=== PATIENT | female | born 1985 | race African-American/Black ===

== ENCOUNTER 2024-02-05 20:48 | Emergency (ER) | payer SELFPAY ==
[~2024-02-05] VITALS: Ht 162.6 cm; Wt 70.0 kg
[2024-02-05 21:29] VITALS: O2SAT 100
[2024-02-05] MEDS: ACETAMINOPHEN 325MG TABLET PO ONE (23:30)
[2024-02-05] MEDS: LIDOCAINE HCL/PF 1% 10 MG/ML 5ML VIAL INFIL ONE (23:30)
[2024-02-05] MEDS: TETANUS, DIPHTHERIA, PERTUSSIS VAC/PF 0.5ML (>10YR OLD) IM ONE (23:30)
[2024-02-06] MEDS ORDERED: CEPH500T MT (00:28)
[2024-02-06] MEDS ORDERED: SULF1TAB48 MT (00:28)
[2024-02-06 00:49] VITALS: BP 123/66; PULSE 74; RESP 16; TEMP 98.3
== END 2024-02-06 00:49 | disposition home or self-care (01) ==
LOC: ER 20:48
DX: L02.31 Cutaneous abscess of buttock (principal); L02.415 Cutaneous abscess of right lower limb
CPT/HCPCS: 10061; 90471; 90715; 99284